=== PATIENT | female | born 1985 | race Hispanic/Latino ===

== ENCOUNTER 2025-04-21 16:23 | Inpatient (IN) | payer SELFPAY ==
[2025-04-21] MEDS ORDERED: Guaifenesin DM 100-10/5 ML UDCUP PO PRN (16:45)
[2025-04-21] MEDS ORDERED: Senokot S 8.6-50 MG TAB PO PRN (16:45)
[2025-04-21] MEDS ORDERED: Electrolyte Replacement Protocol 1 EACH FS SCH (16:45)
[2025-04-21] MEDS ORDERED: Ondansetron PF 4 MG/2 ML Vial IVP PRN (16:45)
[2025-04-21 17:02] VITALS: BMI 28.1
[2025-04-21] MEDS: LevoFLOXacin 750 mg/D5W 750 MG in Premix 1 BAG IVPB SCH (18:09)
[2025-04-22 06:14] LABS: #Basophils Less than 0.03 10x3/uL (0.0-0.2); #Eosinophils 0.03 10x3/uL (0.0-0.7); #Monocytes 0.47 10x3/uL (0.11-0.59); #Neutrophils 4.56 10x3/uL (1.40-6.50); %Basophils 0.3 % (0.0-1.0); %Eosinophils 0.4 % (0.0-10.0); %Lymphocytes 28.0 % (21.0-51.0); %Monocytes 6.6 % (0.0-10.0); %Neutrophils 64.4 % (42.0-75.0); Hematocrit 35.3 % (36.0-47.0); Hemoglobin 11.7 g/dL (12.0-16.0); Mean Corpuscular Hemoglobin 29.2 pg (27.0-31.0); Mean Corpuscular Volume 88.0 fL (78.0-98.0); Platelet Count 219 10x3/uL (130-400); Red Blood Cell (RBC) Count 4.01 mill/uL (4.20-5.40); White Blood Cell (WBC) Count 7.08 10x3/uL (4.8-10.8)
[2025-04-22 06:23] LABS: Anion Gap 13 mmol/L (10-20); BUN (Urea Nitrogen) 10 mg/dL (7.0-18.7); Calc. Creatinine Clearance 103 mL/min (70-130); Calcium 8.3 mg/dL (7.8-10.44); Carbon Dioxide 20 mmol/L (22-29); Chloride 113 mmol/L (98-107); Glucose 92 mg/dL (70-105); Potassium 3.7 mmol/L (3.5-5.1); Sodium 142 mmol/L (136-145)
[2025-04-22] MEDS ORDERED: cefTRIAXone (ROCEPHIN) 1 GM VIAL ONE ×2 (09:01→09:30)
[2025-04-22] MEDS ORDERED: PROPOFOL 20 ML ONE (09:02)
[2025-04-22] MEDS ORDERED: fentaNYL PF 100 MCG/2 ML SYRINGE ONE (09:02)
[2025-04-22] MEDS ORDERED: Ondansetron PF 4 MG/2 ML Vial ONE (09:02)
[2025-04-22] MEDS ORDERED: PHENYLEPHRINE-NS 100 MCG/ML 10 ML SYRINGE ONE (09:28)
[2025-04-22] MEDS: Ketorolac Tromethamine 30 MG (1 mL) VIAL IVP PRN (14:58)
[2025-04-23] MEDS: Acetaminophen 325 MG TAB PO PRN (06:06)
[2025-04-23 06:59] LABS: Anion Gap 11 mmol/L (10-20); BUN (Urea Nitrogen) 9 mg/dL (7.0-18.7); Calc. Creatinine Clearance 98 mL/min (70-130); Calcium 8.0 mg/dL (7.8-10.44); Carbon Dioxide 19 mmol/L (22-29); Chloride 113 mmol/L (98-107); Glucose 99 mg/dL (70-105); Potassium 3.8 mmol/L (3.5-5.1); Sodium 139 mmol/L (136-145)
[2025-04-23 14:09] VITALS: BP 120/78; TEMP 98.2
== END 2025-04-23 15:00 | disposition home or self-care (01) | DRG 661 ==
LOC: T4-A 16:23
PROVIDERS: ADMIT Hospitalist; ATTEND Family Medicine
PROC: 0T768DZ Dilation of Right Ureter with Intraluminal Device, Via Natural or Artificial Opening Endoscopic (ICD-10-PCS; principal; 2025-04-21)
PROC: 3E03329 Introduction of Other Anti-infective into Peripheral Vein, Percutaneous Approach (ICD-10-PCS; 2025-04-21)
DX: N13.6 Pyonephrosis (principal); Z87.442 Personal history of urinary calculi; Z98.51 Tubal ligation status; Z98.890 Other specified postprocedural states
CPT/HCPCS: 36415; 74176; 80048; 85025; C1769; C2617; J0696; J1100; J1885; J1956; J2250; J2405; J2704; J7030

== ENCOUNTER 2025-05-02 11:07 | Day surgery (SDC) | payer SELFPAY ==
[2025-05-01 11:52] VITALS: BMI 28.1
[2025-05-02] MEDS ORDERED: PROPOFOL 20 ML ONE (11:56)
[2025-05-02] MEDS ORDERED: fentaNYL PF 100 MCG/2 ML SYRINGE ONE (11:56)
[2025-05-02] MEDS ORDERED: LevoFLOXacin D5W 500 mg (100 mL) BAG ONE (12:52)
[2025-05-02] MEDS ORDERED: PHENYLEPHRINE-NS 100 MCG/ML 10 ML SYRINGE ONE (13:21)
[2025-05-02] MEDS ORDERED: Ondansetron PF 4 MG/2 ML Vial ONE (13:26)
[2025-05-02] MEDS ORDERED: Ketorolac Tromethamine 30 MG (1 mL) VIAL ONE (13:31)
[2025-05-02] MEDS ORDERED: Oxybutynin 5 MG TAB ONE (14:14)
== END 2025-05-02 15:40 | disposition home or self-care (01) ==
LOC: SDC 11:07
PROVIDERS: ATTEND Urology
DX: N20.0 Calculus of kidney (principal); Z98.51 Tubal ligation status
CPT/HCPCS: 74420; 82365; 88300; C1758; C1769; C2617; J1100; J1885; J1956; J2250; J2405; J2704